=== PATIENT | female | born 1970 | race Caucasian/White ===

== ENCOUNTER 2022-11-24 11:23 | Emergency (ER) | payer OTHER ==
[2022-11-24] MEDS ORDERED: Cyclobenzaprine 10 MG TAB ONE (13:12)
[2022-11-24] MEDS ORDERED: Ketorolac Tromethamine 30 MG/ML VIAL ONE (13:12)
[2022-11-24] MEDS ORDERED: oxyCODONE 5 MG TAB ONE (13:14)
== END 2022-11-24 15:27 | disposition home or self-care (01) ==
LOC: CSHERS 11:23
DX: S00.83XA Contusion of other part of head, initial encounter (principal); F07.81 Postconcussional syndrome; W22.8XXA Striking against or struck by other objects, initial encounter
CPT/HCPCS: 70450; 72125; 96372; J1885